=== PATIENT | female | born 1975 | race Caucasian/White ===

== ENCOUNTER 2019-07-24 16:32 | Emergency (ER) | payer MEDICARE, MEDICAID ==
[~2019-07-24] VITALS: Ht 160 cm; Wt 80.7 kg
[2019-07-24] MEDS ORDERED: NORCO 7.5-3251 EACH PO (18:43)
[2019-07-24] MEDS ORDERED: FLEXERIL PO (18:43)
[2019-07-24 18:52] VITALS: BP 129/79
== END 2019-07-24 18:50 | disposition home or self-care (01) ==
LOC: M.ERS 16:32
DX: S80.11XA Contusion of right lower leg, initial encounter (principal); S00.03XA Contusion of scalp, initial encounter; L53.9 Erythematous condition, unspecified; R07.81 Pleurodynia; M79.602 Pain in left arm; X58.XXXA Exposure to other specified factors, initial encounter; Y93.89 Activity, other specified; Y92.89 Other specified places as the place of occurrence of the external cause; Y99.8 Other external cause status

== ENCOUNTER 2020-05-26 18:30 | Emergency (ER) | payer MEDICARE, MEDICAID ==
[~2020-05-26] VITALS: Ht 172.7 cm; Wt 79.8 kg
[~2020-05-26 18:30] MED LIST: FLEXERIL PO; NORCO 7.5-3251 EACH PO
[2020-05-26] MEDS ORDERED: XANAX 0.25 MG0.25 MG PO (18:37)
[2020-05-26] MEDS ORDERED: LISINOPRIL-HCT1 EACH PO (18:37)
[2020-05-26] MEDS ORDERED: DRIZALMA SPRINK20 MG PO (18:37)
[2020-05-26] MEDS ORDERED: SYNTHROID125 MC1 PO (18:37)
[2020-05-26 19:01] LABS: ABSOLUTE BASOPHILS 0.1 thou/uL (0.0-0.2); ABSOLUTE EOSINOPHILS 0.1 thou/uL (0.0-0.7); ABSOLUTE LYMPHOCYTES 1.4 thou/uL (0.8-5.3); ABSOLUTE MONOCYTES 0.6 thou/uL (0.0-1.2); ABSOLUTE NEUTROPHILS 10.2 thou/uL (1.6-8.1); BASOPHILS 0.9 %; EOSINOPHILS 0.8 %; HEMATOCRIT 38.9 % (37.0-47.0); HEMOGLOBIN 13.6 gm/dL (12.0-15.0); MCH 30.6 pg (26.0-34.0); MCHC 34.9 g/dL (28.0-37.0); MCV 87.5 fL (80.0-100.0); MONOCYTES 4.7 %; MPV 7.9 fl. (7.2-11.1); NUCLEATED RBCS 0 /100WBC; PLATELET COUNT* 335 thou/uL (150-400); POLYS 82.6 %; RBC 4.44 mil/uL (4.20-5.00); WBC 12.4 thou/uL (4.0-11.0)
[2020-05-26 19:14] LABS: INFLUENZA A ANTIGEN Negative (Negative); INFLUENZA B ANTIGEN Negative (Negative)
[2020-05-26 19:16] LABS: CALCIUM 8.9 mg/dL (8.5-10.1); CREATININE 0.9 mg/dL (0.6-1.3); INR 0.9; POTASSIUM 3.8 mmol/L (3.5-5.1); PROTIME 9.6 Seconds (9.20-11.50)
[2020-05-26 19:31] LABS: ALBUMIN 3.9 g/dL (3.4-5.0); TOTAL BILIRUBIN 0.2 mg/dL (<0.1-1.0); TOTAL PROTEIN 7.9 g/dL (6.4-8.2)
[2020-05-26 21:57] VITALS: BP 149/84
--- NOTE | 2020-05-27 10:37 | EKG ---
[place] [address] ELECTROCARDIOGRAM REPORT Name: KAYLA ROSALES Room: 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: : 1975 Requested By: Inocencio Pena Order Number: [id number] MD: Manny Wilson Measurements Intervals [place] Rate: 126 P: 38 MO: 116 QRS: 53 QRSD: 88 T: 35 QT: 386 QTc: 559 Interpretive Statements Sinus tachycardia Possible anterior infarct, age indeterminate Prolonged QT interval No previous ECG available for comparison Electronically Signed On 05-27-2020 10:37:07 CDT by Manny Wilson [email or web address] <ELECTRONICALLY SIGNED> By: Manny Wilson MD, [facility] 05/27/20 [facility] 10 10 Manny Wilson MD, FACC /EPI
== END 2020-05-26 21:58 | disposition short-term general hospital (02) ==
LOC: M.ERS 18:30
PROVIDERS: Family Medicine; Physician Assistant
DX: L03.311 Cellulitis of abdominal wall (principal); Z20.828 Contact with and (suspected) exposure to other viral communicable diseases; R50.9 Fever, unspecified; R00.0 Tachycardia, unspecified